=== PATIENT | female | born 1950 | race Caucasian/White ===

== ENCOUNTER 2017-04-15 13:00 | Outpatient (RCR) | payer OTHER | END 2017-04-19 | disposition home or self-care (01) | LOC: PTY 13:00 | DX: M70.62 Trochanteric bursitis, left hip (principal); Z96.642 Presence of left artificial hip joint | CPT/HCPCS: 97140; 97162; G0283 ==

== ENCOUNTER → 2017-05-20 | Outpatient (RCR) | payer OTHER | END | disposition home or self-care (01) | LOC: PTY 04-22 13:00 | DX: M70.62 Trochanteric bursitis, left hip (principal) | CPT/HCPCS: 97110; 97140; G0283 ==

== ENCOUNTER 2017-06-17 13:00 | Outpatient (RCR) | payer OTHER | END 2017-06-19 | disposition home or self-care (01) | LOC: PTY 13:00 | DX: M70.62 Trochanteric bursitis, left hip (principal) | CPT/HCPCS: 97110; 97140; G0283 ==

== ENCOUNTER 2017-07-04 13:00 | Outpatient (RCR) | payer OTHER | END 2017-07-20 | disposition home or self-care (01) | LOC: PTY 13:00 | DX: M70.62 Trochanteric bursitis, left hip (principal) | CPT/HCPCS: 97110; 97140; G0283 ==